=== PATIENT | female | born 1995 | race Two or more races ===

== ENCOUNTER 2019-05-20 21:03 | Observation (INO) | payer BC ==
[2019-05-20] MEDS ORDERED: IV RINGERS,LACTATED 1000ML 1,000 ML IV SCH (21:05)
[2019-05-20 21:42] LABS: BILIRUBIN,URINE NEGATIVE (NEG); CLARITY,URINE CLEAR; COLOR,URINE YELLOW; NITRITE,URINE NEGATIVE (NEG); PH,URINE 7.5; PROTEIN,URINE NEGATIVE (NEG-TRACE)
[2019-05-20 21:48] LABS: BARBITURATES NEG (NEG); BENZODIAZEPINES NEG (NEG); CANNABINOIDS NEG (NEG); COCAINE NEG (NEG); METHADONE NEG (NEG); OPIATES NEG (NEG); PHENCYCLIDINE NEG (NEG)
[2019-05-20 21:49] LABS: AMPHETAMINE/METHAMPHETAMINE NEG (NEG)
[2019-05-20 22:04] LABS: SQUAMOUS EPITHELIAL CELL,UR MOD /LPF
[2019-05-20 22:05] LABS: BACTERIA,URINE 0 /HPF (0-FEW)
[2019-05-20] MEDS ORDERED: ACETAMINOPHEN 500 MG TABLET PO PRN (22:30)
[2019-05-20] MEDS ORDERED: guaiFENesin DM 200MG/20MG 10 ML SYRUP PO PRN (22:30)
[2019-05-20] MEDS ORDERED: AMOXICILLIN 250 MG CAPSULE. PO ONE (23:00)
== END 2019-05-21 00:50 | disposition home or self-care (01) ==
LOC: 3 SO LND 21:03
PROVIDERS: ADMIT Obstetrics & Gynecology; ATTEND Obstetrics & Gynecology
DX: O99.89 Other specified diseases and conditions complicating pregnancy, childbirth and the puerperium (principal); M54.9 Dorsalgia, unspecified; O26.892 Other specified pregnancy related conditions, second trimester; R50.9 Fever, unspecified; R05 Cough; R61 Generalized hyperhidrosis; Z3A.27 27 weeks gestation of pregnancy
CPT/HCPCS: 80307; 81001; G0378; G0379

== ENCOUNTER 2020-09-15 10:20 | Emergency (ER) | payer BC, OTHER ==
[~2020-09-15] VITALS: Ht 160 cm; Wt 81.9 kg
[2020-09-15 10:56] VITALS: BP 138/86
--- NOTE | 2020-09-15 11:29 | ED.ADGEN ---
Past Medical History Past Medical History: No Pertinent History Past Surgical History: No Surgical History Alcohol Use: None Drug Use: None General Adult EDM: Chief Complaint: MECHANICAL FALL HPI: HPI: Patient is a 25 year old female coming in for right knee pain after a fall yesterday. Patient was at work as she got her foot caught in some plastic packaging and fell down onto her both of her knees. Has a little bit of bruising and pain her left knee but having increased pain in her right. Denies any prior injury to her right knee. Has some bruising but no open wounds. Otherwise has been well Review of Systems: Review of Systems: All other systems within normal limits except for as noted in the HPI Allergies: Allergies: Allergies Coded Allergies Type Severity Reaction Last Updated Verified No Known Drug Allergies 07/10/13 No Physical Exam: PE: Constitutional: Well developed, well nourished, no acute distress, non-toxic appearance. [] HENT: Normocephalic, atraumatic, bilateral external ears normal, nose normal. [] Eyes: PERRLA, conjunctiva normal, no discharge. [] Neck: No rigidity, supple, no stridor. [] Cardiovascular: Regular rate and rhythm, brisk cap refill [] Lungs & Thorax: Non labored symmetric respirations, no tachypnea or respiratory distress [] Abdomen: Soft, nondistended. Skin: Warm, dry, no erythema, no rash. [] Back: Unremarkable Extremities: No deformities, range of motion grossly intact, no lower extremity edema. Right knee: Neurologic: Alert and oriented X 3, no focal deficits noted. [] Psychologic: Affect normal, judgement normal, mood normal. [] Current Patient Data: Vital Signs: Vital Signs Date Time Temp Pulse Resp B/P (MAP) Pulse Ox O2 Delivery O2 Flow Rate FiO2 09/15/20 10:56 97.7 66 17 138/86 (103) 99 Room Air 97.7 EKG: EKG: [] Heart Score: C/O Chest Pain: No Risk Factors: Risk Factors: DM, Current or recent (<one month) smoker, HTN, HLP, family history of CAD, obesity. Risk Scores: Score 0 - 3: 2.5% MACE over next 6 weeks - Discharge Home Score 4 - 6: 20.3% MACE over next 6 weeks - Admit for Clinical Observation Score 7 - 10: 72.7% MACE over next 6 weeks - Early Invasive Strategies Radiology/Procedures: Radiology/Procedures: Exam Date: 09/15/2020 11:05 AM XR KNEE 4 VIEWS WITH PATELLA_RT Indication: Reason: fall, ant knee pain / Spl. Instructions: / History: FINDINGS/ IMPRESSION: No acute fracture or dislocation. Alignment and joint spaces are maintained. The soft tissues are within normal limits. [] Course & Med Decision Making: Course & Med Decision Making Pertinent Labs and Imaging studies reviewed. (See chart for details) [] Dragon Disclaimer: Dragon Disclaimer: This electronic medical record was generated, in whole or in part, using a voice recognition dictation system. Departure Departure Impression: Primary Impression: Fall Additional Impression: Contusion of right knee Disposition: 01 DC HOME SELF CARE/HOMELESS Condition: STABLE Referrals: THERESA NORTON (PCP) Patient Instructions: RICE - Routine Care for Injuries Additional Instructions: May take Tylenol and Motrin as needed for pain Problem Qualifiers JACLYN ALVARADO MD Sep 15, 2020 11:29
--- NOTE | 2020-09-15 11:46 | RAD ---
Exam Date: 09/15/2020 11:05 AM XR KNEE 4 VIEWS WITH PATELLA_RT Indication: Reason: fall, ant knee pain / Spl. Instructions: / History: FINDINGS/ IMPRESSION: No acute fracture or dislocation. Alignment and joint spaces are maintained. The soft tissues are w ithin normal limits. Electronically signed by: Karl Diaz MD (09/15/2020 11:44 AM) [id number]
== END 2020-09-15 12:47 | disposition home or self-care (01) ==
LOC: ER 10:20
DX: S80.01XA Contusion of right knee, initial encounter (principal); W18.39XA Other fall on same level, initial encounter; Y93.89 Activity, other specified; Y92.89 Other specified places as the place of occurrence of the external cause; Y99.8 Other external cause status
CPT/HCPCS: 73564; 99284